=== PATIENT | female | born 1950 | race Caucasian/White ===

== ENCOUNTER 2016-10-18 07:28 | Day surgery (SDC) | payer OTHER, MEDICARE ==
[2016-10-14 10:49] VITALS: BMI 24.0
[2016-10-18] MEDS ORDERED: PROPOFOL 20 ML ONE ×2 (07:30)
[2016-10-18 08:42] VITALS: TEMP 98
[2016-10-18 09:09] VITALS: BP 99/62; PULSE 64
== END 2016-10-18 09:10 | disposition home or self-care (01) ==
LOC: FASU-ENDO 07:28
PROVIDERS: ATTEND Internal Medicine Gastroenterology
PROC: 0DJD8ZZ Inspection of Lower Intestinal Tract, Via Natural or Artificial Opening Endoscopic (ICD-10-PCS; principal; 2016-10-18 08:08)
DX: Z86.010 Personal history of colon polyps (principal)

== ENCOUNTER 2022-04-19 14:53 | Emergency (ER) | payer OTHER, MEDICARE ==
[2022-04-19] MEDS ORDERED: SODIUM CHLORIDE 1,000 ML IV STA (15:18)
[2022-04-19 15:21] VITALS: BP 157/81; PULSE 75; RESP 16; TEMP 98.4; BMI 24.7
[2022-04-19 16:28] LABS: HEMATOCRIT 41.5 % (32.4-45.2); HEMOGLOBIN 14.2 G/dL (10.7-15.3); MCH 29.8 pg (25.7-33.7); MCHC 34.1 g/dl (32.0-36.0); MEAN CELL VOLUME 87.4 fl (80-96); MEAN PLT VOLUME 8.9 fl (7.5-11.1); PLATELET COUNT 182.7 10^3/uL (134-434); RBC 4.75 10^6/uL (3.60-5.2); RDW 13.8 % (11.6-15.6); WHITE BLOOD COUNT 7.1 10^3/uL (4.0-10.8)
[2022-04-19 16:35] LABS: ALBUMIN 3.9 g/dl (3.4-5.0); BILIRUBIN,TOTAL 0.6 mg/dl (0.2-1); CALCIUM 8.7 mg/dl (8.5-10); CREATININE 0.9 mg/dl (0.55-1.3); TOT PROT 6.6 g/dl (6.4-8.2)
[2022-04-19 17:23] LABS: PLATELET ESTIMATE ADEQUATE
[2022-04-19 18:20] LABS: EPITHELIAL CELLS FEW /hpf
== END 2022-04-19 18:55 | disposition home or self-care (01) ==
LOC: FER 14:53
PROC: 3E0337Z Introduction of Electrolytic and Water Balance Substance into Peripheral Vein, Percutaneous Approach (ICD-10-PCS; principal; 2022-04-19)
DX: J06.9 Acute upper respiratory infection, unspecified (principal)
CPT/HCPCS: 0241U-QW; 36415; 71045-TC-FY; 80053; 81003; 81015; 84484; 85027; 87086; 93005; 99285-25

== ENCOUNTER 2022-12-20 09:34 | Day surgery (SDC) | payer OTHER, MEDICARE ==
[2022-12-17 13:56] VITALS: BMI 24.0
[2022-12-20 09:52] VITALS: RESP 16; TEMP 97.7
[2022-12-20 11:27] VITALS: BP 120/54; PULSE 60
== END 2022-12-20 11:44 | disposition home or self-care (01) ==
LOC: FASU-ENDO 09:34
PROVIDERS: ATTEND Internal Medicine Gastroenterology
PROC: 0DJD8ZZ Inspection of Lower Intestinal Tract, Via Natural or Artificial Opening Endoscopic (ICD-10-PCS; principal; 2022-12-20 10:43)
DX: Z12.11 Encounter for screening for malignant neoplasm of colon (principal); Z86.010 Personal history of colon polyps; K57.30 Diverticulosis of large intestine without perforation or abscess without bleeding